=== PATIENT | male | born 1940 | race Caucasian/White ===

== ENCOUNTER 2022-02-06 10:37 | Outpatient (CLI) | payer MEDICARE, SELFPAY | END 2022-02-06 10:38 | disposition home or self-care (01) | PROVIDERS: PCP Family Medicine; Visit Provider Family Medicine | DX: M54.16 Radiculopathy, lumbar region (principal); M51.36 Other intervertebral disc degeneration, lumbar region | CPT/HCPCS: 64483; 64484; J1100; Q9966 ==

== ENCOUNTER 2022-06-27 17:07 | Emergency (ER) | payer MEDICARE, SELFPAY ==
[2022-06-27 17:13] VITALS: BP 147/77; PULSE 87; RESP 18; TEMP 36.1; O2SAT 94; BMI 34.3
--- NOTE | 2022-06-27 17:20 | CRLHL7_ITS ---
For Patients: As a result of the Cures Act, medical imaging exams and procedure reports are released immediately into your electronic medical record. You may view this report before your referring provider. If you have questions, please contact your health care provider. Indication: Injury Technique: Two views left forearm Comparison: No comparison Findings: Arthritic changes of the elbow. Normal alignment no acute fractures seen no definite diffusion Dictated by Flora Mclean MD @ 06/28/2022 10:04:04 AM (Electronically Signed)
--- NOTE | 2022-06-27 17:21 | ED_ITS ---
HPI - Extremity Injury (Upper) General Chief Complaint: Extremity Pain/Injury, Upper Stated Complaint: Arm Pain/Injury Time Seen by Provider: 06/27/22 17:18 History of Present Illness HPI narrative: This 81-year-old male comes in with an injury to his left forearm. He was attempting to lift a heavy object weighing about 60 lb. He felt something let go and the volar aspect of his left wrist. He reports pain in this area. He is able to flex and extend his fingers but it is painful when doing so. There is no palpable step-off in the musculature of his forearm. There is no significant swelling or sign of deformity. Related Data Home Medications Medication Instructions Recorded Confirmed acetaminophen 500 mg tablet 500 mg PO Q6H PRN 03/31/22 (Tylenol Extra Strength) ascorbic acid (vitamin C) 500 mg 500 mg PO QDAY 03/31/22 capsule cholecalciferol (vitamin D3) 25 25 mcg PO QDAY 03/31/22 mcg (1,000 unit) tablet cyanocobalamin (vitamin B-12) 1,000 mcg PO QDAY 03/31/22 1,000 mcg capsule glucosamin 375 mg-chond 300 1 cap PO QDAY 03/31/22 mg-collagen 50 mg-hyaluronic acid 2 mg cap magnesium oxide 500 mg capsule 500 mg PO QDAY 03/31/22 Previous Rx's Medication Instructions Recorded lisinopril 40 mg tablet 40 mg PO QDAY #90 tabs 06/08/22 Allergies Allergy/AdvReac Type Severity Reaction Status Date / Time oxycodone Allergy Mild Confusion Uncoded 03/31/22 11:53 Review of Systems Status of ROS: Reports: 10 or more systems reviewed and unremarkable except as noted in History and below Narrative: Constitutional: No fevers, no weight gain or loss. Eyes: No discharge. No vision changes. HENT: No congestion, no sore throat, no ear pain. Cardiovascular: No chest pain, no palpitations. Respiratory: No shortness of breath, no wheezes, no cough. Gastrointestinal: No abdominal pain, no vomiting, no diarrhea. Genitourinary: No dysuria, no hematuria. Musculoskeletal: Left forearm injury with pain and associated decreased range of motion. Skin: No rashes, no pruritis. Neurological: No dizziness, weakness, sensory change, speech change. Endo/Heme/Allergies: No bruising or bleeding. No polydipsia. Pysch: no suicidality, no anxiety, no insomnia. All other systems reviewed and are negative. PFSH PFSH Social History Smoking Status: Never smoker Do you use any of these nicotine containing products: None Second hand tobacco smoke exposure: No How often do you have a drink containing alcohol: never How often do you have six or more drinks on one occasion: Never AUDIT-C Alcohol total score: 0 Non-prescribed substance use: denies use service: No Exam Narrative: Exam Narrative: Constitutional: Well-developed, well-nourished, no acute distress. HEENT: Normocephalic, atraumatic. Neck: Normal range of motion. Nontender. Supple. Heart: Intact distal pulses. Lungs: No chest discomfort. No wheezes, rhonchi, or rales. Abdomen: Nontender. Back: Normal range of motion. Extremities: Pain in the volar aspect of the left wrist. No sign of deformity or swelling. There is no palpable step-off or sign of tendon dysfunction. Skin: Intact. No rash. Warm. No erythema or pallor. Neurologic: No altered sensation. No weakness. Alert and oriented. Psychiatric: No suicidality. No anxiety or depression. No insomnia. Nursing notes and vitals signs are reviewed. Const: Vital Signs, click to edit/add: Vital Signs - 24 hr 06/27/22 17:13 Temperature 97.0 F L Pulse Rate [Right Pulse Oximeter] 87 Respiratory Rate 18 Blood Pressure [Ri ght Upper Arm] 147/77 H Pulse Oximetry 94 Oxygen Delivery Me thod Room Air Course Vital Signs Vital signs: Initial Vital Signs Temperature 97.0 F L 06/27/22 17:13 Temperature Source Temporal Artery Scan 06/27/22 17:13 Pulse Rate 87 06/27/22 17:13 Respiratory Rate 18 06/27/22 17:13 Blood Pressure 147/77 H 06/27/22 17:13 Blood Pressure Mean 100 06/27/22 17:13 Blood Pressure Position Sitting 06/27/22 17:13 Pulse Oximetry 94 06/27/22 17:13 Oxygen Delivery Method 06/27/22 17:13 Vital Signs Temperature 97.0 F L 06/27/22 17:13 Pulse Rate 87 06/27/22 17:13 Respiratory Rate 18 06/27/22 17:13 Blood Pressure 147/77 H 06/27/22 17:13 Pulse Oximetry 94 06/27/22 17:13 Oxygen Delivery Method 06/27/22 17:13 Temperature 97.0 F L 06/27/22 17:13 Pulse Rate 87 06/27/22 17:13 Respiratory Rate 18 06/27/22 17:13 Blood Pressure 147/77 H 06/27/22 17:13 Pulse Oximetry 94 06/27/22 17:13 Oxygen Delivery Method 06/27/22 17:13 MDM - Extremity Injury (Upper) MDM Narrative Medical decision making narrative: This patient comes in with an injury to his left wrist. An x-ray is obtained and radiology report his delayed due to very busy circumstances. By my review x-ray imaging shows no evidence of fracture or dislocation. The patient received a wrist splint and a prescription for Toradol. He is encouraged to increase activity as tolerated or follow-up with primary physician or orthopedic clinic if not improving. Imaging Data XR L Wrist: My impression: No sign of fracture or dislocation. Discharge Plan Discharge Clinical Impression: Sprain of wrist, left Patient Disposition: Home, Self-Care Condition: Stable Additional Instructions: Wear wrist splint as needed. Use medications also as needed and directed. Follow up with MD or orthopedic clinic if not improving or worsening. Prescriptions: No Action acetaminophen [Tylenol Extra Strength] 500 mg tablet 500 mg PO Q6H PRN magnesium oxide 500 mg capsule 500 mg PO QDAY cholecalciferol (vitamin D3) 25 mcg (1,000 unit) tablet 25 mcg PO QDAY bcgiaoqc-pgnq-nxxrxa-hyalur ac [id number] mg capsule 1 cap PO QDAY cyanocobalamin (vitamin B-12) 1,000 mcg capsule 1,000 mcg PO QDAY ascorbic acid (vitamin C) 500 mg capsule 500 mg PO QDAY lisinopril 40 mg tablet 40 mg PO QDAY Qty: 90 1RF Follow Up/Referrals: Alan Cuenca MD [Primary Care Provider] - Stand Alone Forms: [employer] Info Instructions
--- NOTE | 2022-06-27 19:59 | ED.NURSE ---
pt refuses toradol insty meds, states no pain currently and will take tylenol at home.
== END 2022-06-27 19:59 | disposition home or self-care (01) ==
PROVIDERS: Emergency Provider Emergency Medicine Emergency Medical Services; PCP Family Medicine
DX: S52.502A Unspecified fracture of the lower end of left radius, initial encounter for closed fracture (principal); X50.0XXA Overexertion from strenuous movement or load, initial encounter
CPT/HCPCS: 29125; 73090; 99283; 99284

== ENCOUNTER 2022-07-06 15:13 | Outpatient (CLI) | payer MEDICARE, SELFPAY ==
[2022-07-06 22:53] LABS: Chloride* 104 mmol/L (96-114); Potassium* 4.4 mmol/L (3.6-5.1); Sodium* 139 mmol/L (135-149)
[2022-07-06 22:56] LABS: Estimated Glomerular Filt Rate 77 ml/min
[2022-07-06 22:57] LABS: Blood Urea Nitrogen* 22 mg/dL (7-30); Calcium* 9.3 mg/dL (8.4-10.6); Carbon Dioxide* 29 mmol/L (20-32); Glucose* 142 mg/dL (60-115)
[2022-07-06 23:12] LABS: C Reactive Protein* < 0.5 mg/dL (0.5-1.0)
[2022-07-06 23:21] LABS: Erythrocyte SedimentationRate* 5 mm/hr (2-15)
== END 2022-07-06 15:14 | disposition home or self-care (01) ==
PROVIDERS: PCP Family Medicine; Visit Provider Family Medicine
DX: I10 Essential (primary) hypertension (principal); R51.9 Headache, unspecified
CPT/HCPCS: 80048; 85651; 86140

== ENCOUNTER 2022-08-15 12:21 | Emergency (ER) | payer MEDICARE, SELFPAY ==
[2022-08-15 12:58] VITALS: BP 111/68; PULSE 90; TEMP 37.3; O2SAT 92; BMI 34.4
--- NOTE | 2022-08-15 13:53 | ED.GENADULT ---
HPI - General Adult General Chief complaint: Shortness of Breath/Dyspnea Stated complaint: Covid+ Time Seen by Provider: 08/15/22 13:03 History of Present Illness HPI narrative: This 82-year-old male comes in reporting 10 days of respiratory symptoms with decreased stamina and some shortness of breath with exertion. He tested positive recently at home for COVID. He arrives here with normal vital signs. When at rest he is maintaining oximetry at 95-96% on room air. He has normal heart rate and is not using accessory muscles for breathing. Related Data Home Medications Medication Instructions Recorded Confirmed acetaminophen 500 mg tablet 500 mg PO Q6H PRN 03/31/22 07/06/22 (Tylenol Extra Strength) ascorbic acid (vitamin C) 500 mg 500 mg PO QDAY 03/31/22 07/06/22 capsule cholecalciferol (vitamin D3) 25 25 mcg PO QDAY 03/31/22 07/06/22 mcg (1,000 unit) tablet cyanocobalamin (vitamin B-12) 1,000 mcg PO QDAY 03/31/22 07/06/22 1,000 mcg capsule glucosamin 375 mg-chond 300 1 cap PO QDAY 03/31/22 07/06/22 mg-collagen 50 mg-hyaluronic acid 2 mg cap magnesium oxide 500 mg capsule 500 mg PO QDAY 03/31/22 07/06/22 omega 7-yxk-fho-fish oil 100 cap PO 06/30/22 07/06/22 mg-160 mg-1,000 mg capsule (Fish Oil) Previous Rx's Medication Instructions Recorded lisinopril 40 mg tablet 40 mg PO QDAY #90 tabs 06/08/22 celecoxib 200 mg capsule (Celebrex) 200 mg PO BID #60 caps 07/09/22 acetaminophen 300 mg-codeine 30 mg 1 tab PO Q6H PRN pain #20 tabs 08/15/22 tablet Allergies Allergy/AdvReac Type Severity Reaction Status Date / Time oxycodone Allergy Confusion Verified 07/06/22 14:40 Review of Systems Status of ROS: Reports: 10 or more systems reviewed and unremarkable except as noted in History and below Narrative: Constitutional: No fevers, no weight gain or loss. Eyes: No discharge. No vision changes. HENT: No congestion, no sore throat, no ear pain. Cardiovascular: No chest pain, no palpitations. Respiratory: He reports some shortness of breath with exertion but not at rest. Occasional cough. Gastrointestinal: No abdominal pain, no vomiting, no diarrhea. Genitourinary: No dysuria, no hematuria. Musculoskeletal: Normal range of motion. Skin: No rashes, no pruritis. Neurological: No dizziness, weakness, sensory change, speech change. Endo/Heme/Allergies: No bruising or bleeding. No polydipsia. Pysch: no suicidality, no anxiety, no insomnia. All other systems reviewed and are negative. [facility] Medical History (Updated 08/15/22 @ 13:56 by Robert Odom MD) Basal cell carcinoma (BCC) of face (12/21/11) Benign prostatic hyperplasia Calculus of left ureter (10/09/18) Carpal tunnel syndrome of left wrist Constipation Erectile dysfunction Gastroesophageal reflux disease (12/10/12) History of adenomatous polyp of colon History of broken finger History of osteopenia (08/06/21) Hypertension Lumbar radiculopathy Obesity with body mass index (BMI) of 35.0 to 39.9 without comorbidity Obstructive sleep apnea syndrome Peripheral neuropathy Presbycusis Spinal stenosis Surgical History (Updated 07/14/22 @ 00:06 by Alan Cuenca MD) History of ankle surgery History of back surgery History of colonoscopy with polypectomy (04/23/20) History of sinus surgery (08/26/15) History of surgery History of total left knee replacement Family History (Updated 07/03/22 @ 13:16 by Allie Morris) Daughter Colon cancer Ovarian cancer Father Heart disease Social History (Updated 07/03/22 @ 13:17 by Allie Morris) Narrative: , 3 kids, retired, non-smoker, no EtOH Smoking Status: Former smoker Do you use any of these nicotine containing products: None Second hand tobacco smoke exposure: No How often do you have a drink containing alcohol: never How often do you have six or more drinks on one occasion: Never AUDIT-C Alcohol total score: 0 Non-prescribed substance use: denies use service: No Exam Narrative: Exam Narrative: Constitutional: Well-developed, well-nourished, no acute distress. HEENT: Normocephalic, atraumatic. Neck: Normal range of motion. Nontender. Supple. Heart: Regular. No murmurs. Normal rate. Intact distal pulses. Lungs: Clear to auscultation. No chest discomfort. No wheezes, rhonchi, or rales. Abdomen: Normal bowel sounds. Nontender. No rebound tenderness. Genitalia: Deferred. Back: No midline tenderness. Normal range of motion. Extremities: Normal range of motion. No injury. Skin: Intact. No rash. Warm. No erythema or pallor. Neurologic: No altered sensation. No weakness. Alert and oriented. Psychiatric: No suicidality. No anxiety or depression. No insomnia. Nursing notes and vitals signs are reviewed. Const: Vital Signs, click to edit/add: Vital Signs - 24 hr 08/15/22 12:58 Temperature 99.1 F Pulse Rate [Pulse Oximeter] 90 Blood Pressure [Ri ght Upper Arm] 111/68 Pulse Oximetry 92 Oxygen Delivery Me thod Room Air Course Vital Signs Vital signs: Initial Vital Signs Temperature 99.1 F 08/15/22 12:58 Temperature Source Temporal Artery Scan 08/15/22 12:58 Pulse Rate 90 08/15/22 12:58 Blood Pressure 111/68 08/15/22 12:58 Blood Pressure Mean 82 08/15/22 12:58 Blood Pressure Position Sitting 08/15/22 12:58 Pulse Oximetry 92 08/15/22 12:58 Oxygen Delivery Method 08/15/22 12:58 Vital Signs Temperature 99.1 F 08/15/22 12:58 Pulse Rate 90 08/15/22 12:58 Blood Pressure 111/68 08/15/22 12:58 Pulse Oximetry 92 08/15/22 12:58 Oxygen Delivery Method 08/15/22 12:58 Temperature 99.1 F 08/15/22 12:58 Pulse Rate 90 08/15/22 12:58 Blood Pressure 111/68 08/15/22 12:58 Pulse Oximetry 92 08/15/22 12:58 Oxygen Delivery Method 08/15/22 12:58 Medical Decision Making MDM Narrative Medical decision making narrative: This patient has COVID and symptoms began about 10 days ago. He is not a good candidate for Paxlovid given the duration of symptoms. He has normal vital signs and normal exam. He did receive an oral dose of dexamethasone and a prescription for Tylenol 3. I advised him to return if becoming hypoxic. At the time of discharge the patient appears safe for outpatient management. The treatment plan is reviewed along with written and verbal return precautions. Reasons to return and the importance of close followup were also reviewed. Discharge Plan Discharge Clinical Impression: COVID-19 Patient Disposition: Home, Self-Care Condition: Stable Additional Instructions: Take medication as needed and indicated. Increase activity as tolerated. Follow up with MD or return if worsening symptoms occur, especially if becoming short of breath at rest. Prescriptions: New acetaminophen-codeine 300-30 mg tablet 1 tab PO Q6H PRN (Reason: pain) Qty: 20 0RF No Action Fish Oil 100-160-1,000 mg capsule PO celecoxib [Celebrex] 200 mg capsule 200 mg PO BID Qty: 60 1RF acetaminophen [Tylenol Extra Strength] 500 mg tablet 500 mg PO Q6H PRN magnesium oxide 500 mg capsule 500 mg PO QDAY cholecalciferol (vitamin D3) 25 mcg (1,000 unit) tablet 25 mcg PO QDAY dalpnrmj-cijh-oyvhdh-hyalur ac [id number] mg capsule 1 cap PO QDAY cyanocobalamin (vitamin B-12) 1,000 mcg capsule 1,000 mcg PO QDAY ascorbic acid (vitamin C) 500 mg capsule 500 mg PO QDAY lisinopril 40 mg tablet 40 mg PO QDAY Qty: 90 1RF Follow Up/Referrals: Alan Cuenca MD [Primary Care Provider] - Stand Alone Forms: [employer] Info Instructions
[2022-08-15] MEDS: dexAMETHasone 10 MG/ML inj PO (14:16)
[2022-08-15 14:22] VITALS: BP 117/67; PULSE 79; RESP 14; O2SAT 95
== END 2022-08-15 14:42 | disposition home or self-care (01) ==
LOC: ED 14:03
PROVIDERS: Emergency Provider Emergency Medicine Emergency Medical Services; PCP Family Medicine
DX: U07.1 COVID-19 (principal)
CPT/HCPCS: 93005; 99284; J1100

== ENCOUNTER 2023-01-06 11:47 | Outpatient (CLI) | payer MEDICARE, SELFPAY | END 2023-01-06 11:48 | disposition home or self-care (01) | PROVIDERS: PCP Family Medicine; Visit Provider Family Medicine | DX: Z00.00 Encounter for general adult medical examination without abnormal findings (principal); I10 Essential (primary) hypertension; E66.9 Obesity, unspecified; Z12.5 Encounter for screening for malignant neoplasm of prostate; Z13.6 Encounter for screening for cardiovascular disorders | CPT/HCPCS: 80048; 80061; 84153; 84460; 85025 ==

== ENCOUNTER 2023-08-20 11:19 | Outpatient (CLI) | payer MEDICARE, SELFPAY | END 2023-08-20 11:20 | disposition home or self-care (01) | LOC: NFLDREF 11:19 | PROVIDERS: PCP Family Medicine; Visit Provider Family Medicine | DX: Z01.818 Encounter for other preprocedural examination (principal); I10 Essential (primary) hypertension | CPT/HCPCS: 80048 ==

== ENCOUNTER 2024-05-01 10:00 | Outpatient (CLI) | payer MEDICARE, SELFPAY | END 2024-05-01 10:01 | disposition home or self-care (01) | PROVIDERS: PCP Family Medicine; Visit Provider Family Medicine | DX: Z00.00 Encounter for general adult medical examination without abnormal findings (principal); I10 Essential (primary) hypertension; Z12.5 Encounter for screening for malignant neoplasm of prostate | CPT/HCPCS: 80048; 80061 ==

== ENCOUNTER 2025-03-05 11:34 | Outpatient (CLI) | payer MEDICARE, SELFPAY | END 2025-03-05 11:35 | disposition home or self-care (01) | PROVIDERS: PCP Family Medicine; Visit Provider Family Medicine | DX: I10 Essential (primary) hypertension (principal) | CPT/HCPCS: 80048; 85025 ==